=== PATIENT | female | born 1960 | race Caucasian/White ===

== ENCOUNTER 2020-06-04 07:22 | Outpatient (CLI) | payer OTHER ==
--- NOTE | 2020-06-04 07:47 | RAD ---
EXAM: Chest 2 views: HISTORY: Cough. History of breast cancer COMPARISON: 02/05/2003 FINDINGS: There is a normal-sized cardiomediastinal silhouette. The Mediport is unchanged in position. There is no evidence of consolidation, mass, or pleural effusion. No acute osseous abnormality. The patient is status post left mastectomy and left axillary dissection. IMPRESSION: No evidence of acute cardiopulmonary disease
== END 2020-06-04 07:23 | disposition home or self-care (01) ==
LOC: MADRAD 07:22
PROVIDERS: ATTEND Family Medicine
DX: R05 Cough (principal); F17.200 Nicotine dependence, unspecified, uncomplicated
CPT/HCPCS: 71046

== ENCOUNTER 2023-04-11 18:44 | Emergency (ER) | payer SELFPAY ==
[2023-04-11 19:44] LABS: #Basophils 0.1 thou/uL (0.0-0.2); #Eosinphils 0.1 thou/uL (0.0-0.7); #Monocytes 0.6 thou/uL (0.11-0.59); #Neutrophils 3.8 thou/uL (1.40-6.50); %Basophils 0.9 % (0.0-1.0); %Eosinophils 1.5 % (0.0-10.0); %Lymphocytes 39.7 % (21.0-51.0); %Monocytes 7.3 % (0.0-10.0); %Neutrophils 50.6 % (42.0-75.0); Hematocrit 44.8 % (36.0-47.0); Hemoglobin 14.5 g/dL (12.0-16.0); Mean Corpuscular HGB CONC 32.3 g/dL (32.0-36.0); Mean Corpuscular Hemoglobin 31.4 pg (27.0-31.0); Mean Corpuscular Volume 97.1 fl (78.0-98.0); Mean Platelet Volume 6.4 fL (7.4-10.4); Platelet Count 228 10x3/uL (130-400); RBC Distribution Width 13.3 % (11.5-14.5); Red Blood Cell (RBC) Count 4.62 mill/uL (4.20-5.40); White Blood Cell (WBC) Count 7.6 10x3/uL (4.8-10.8)
[2023-04-11 19:45] LABS: Bilirubin Negative (Negative); Blood, Urine Negative (Negative); Clarity Clear (Clear); Glucose, Urine (Dipstick) Negative (Negative); Ketone, Urine Negative (Negative); Leukocyte Negative (Negative); Nitrite Negative (Negative); Protein, Urine (Dipstick) Negative (Neg-Trace); Specific Gravity, Urine 1.015 (1.005-1.030); Urobilinogen 0.2 mg/dL (Less than 2)
[2023-04-11 19:50] LABS: CAUTI Indications for Culture Pelvic or flank pain; RBC/HPF None Seen HPF (0-3); Squamous Epithelial 0-3 HPF (0-3); WBC/HPF 0-3 HPF (0-3)
[2023-04-11 19:51] LABS: Urine Culture Reflex No No
[2023-04-11 20:04] LABS: ALT (SGPT) 11 U/L (8-55); AST (SGOT) 16 U/L (5-34); Albumin 3.7 g/dL (3.4-4.8); Alkaline Phosphatase 80 U/L (40-110); Anion Gap 14 mmol/L (10-20); BUN (Urea Nitrogen) 10 mg/dL (9.8-20.1); Bilirubin, Total 0.5 mg/dL (0.2-1.2); Calc. Creatinine Clearance 0 mL/min (70-130); Calcium 10.1 mg/dL (7.8-10.44); Carbon Dioxide 28 mmol/L (23-31); Chloride 101 mmol/L (98-107); Estimated GFR 82; Globulin 2.5 g/dL (2.4-3.5); Glucose 91 mg/dL (80-115); Lipase 32 U/L (8-78); Magnesium 1.4 mg/dL (1.6-2.6); Protein, Total 6.2 g/dL (5.8-8.1); Sodium 139 mmol/L (136-145)
[2023-04-11] MEDS ORDERED: Magnesium 2 GM/50 ML BAG (IN WATER) ONE ×2 (20:10→20:12)
[2023-04-11] MEDS ORDERED: Lidocaine Viscous Sol 2% 15 ml UD Cup ONE (21:44)
[2023-04-11] MEDS ORDERED: Mag-Al Plus 1200 MG/1200 MG/120 MG/30 ML UDCUP ONE (21:44)
== END 2023-04-11 21:52 | disposition home or self-care (01) ==
LOC: MADERS 18:44
DX: K21.9 Gastro-esophageal reflux disease without esophagitis (principal); E83.42 Hypomagnesemia; F17.210 Nicotine dependence, cigarettes, uncomplicated
CPT/HCPCS: 36415; 74177; 80053; 81001; 83690; 83735; 85025; 96365; J3475

== ENCOUNTER 2025-06-12 08:46 | Outpatient (CLI) | payer MEDICARE | END 2025-06-12 08:47 | disposition home or self-care (01) | LOC: MADRAD 08:46 | DX: M43.6 Torticollis (principal); M43.12 Spondylolisthesis, cervical region; M41.9 Scoliosis, unspecified; Z98.1 Arthrodesis status | CPT/HCPCS: 72040 ==